=== PATIENT | male | born 1950 | race African-American/Black ===

== ENCOUNTER 2019-12-01 14:38 | Emergency (ER) | payer MEDICARE, OTHER ==
[~2019-12-01] VITALS: Ht 175.3 cm; Wt 45.4 kg
[~2019-12-01 14:38] MED LIST: CIPROFLOXACIN500 M2 ORAL
--- NOTE | 2019-12-01 15:00 | NUR ---
ED Nurse Note: Patient brought in ambulance from street due to chest pain. Patient is homeless. Patient appears to be malnoursished, thin, dry skin. Patient awake, alert, oriented x 2, appears to be intoxicated. Pinpoint pupils in bilateral eyes. No visible trauma noted. EMS given ASA and NTG and BP dropped SBP>90. No facial grimacing or guarding noted. Patient covering himeself with blankets. Provided warm blankets.
[2019-12-01 15:12] LABS: HEMATOCRIT 37.5 % (42.0-52.0); HEMOGLOBIN 12.8 G/DL (14.2-18.0); MEAN CORPUSCULAR VOLUME 97 FL (80-99); PLATELET COUNT 716 K/UL (150-450); RED BLOOD COUNT 3.85 M/UL (4.70-6.10); RED CELL DISTRIBUTION WIDTH 20.2 % (11.6-14.8); WHITE BLOOD COUNT 13.2 K/UL (4.8-10.8)
[2019-12-01 15:21] LABS: ANION GAP 10 mmol/L (5-15); BLOOD UREA NITROGEN 68 mg/dL (7-18); CALCIUM 9.5 MG/DL (8.5-10.1); CARBON DIOXIDE 27 MMOL/L (21-32); CHLORIDE 100 MMOL/L (98-107); CREATININE 3.1 MG/DL (0.55-1.30); POTASSIUM 3.9 MMOL/L (3.5-5.1); SODIUM 137 MMOL/L (136-145)
[2019-12-01 15:26] LABS: ALANINE AMINOTRANSFERASE 20 U/L (12-78); ALBUMIN 3.3 G/DL (3.4-5.0); ALBUMIN/GLOBULIN RATIO 0.7 (1.0-2.7); ALKALINE PHOSPHATASE 108 U/L (46-116); ASPARTATE AMINO TRANSFERASE 28 U/L (15-37); BILIRUBIN,TOTAL 0.4 MG/DL (0.2-1.0); CREATINE KINASE 246 U/L (26-308)
--- NOTE | 2019-12-01 16:25 | Diagnostic Imaging Report ---
Indication: Dyspnea Comparison: None A single view chest radiograph was obtained. Findings: No definite infiltrate or pulmonary vascular congestion identified. The heart is enlarged. The aorta is mildly enlarged consistent with atherosclerotic vascular disease. The bones are osteopenic. Impression: No acute disease
[2019-12-01 16:30] VITALS: BP 100/86
--- NOTE | 2019-12-01 16:30 | NUR ---
ED Nurse Note: ERMD notified of rectal temp 90.3F. Linn Hugger not available at this time. hospital medical biller notified. Provided warm blankets.
--- NOTE | 2019-12-01 17:21 | Emergency Room Report ---
History of Present Illness General Chief Complaint: Chest Pain Source: Patient Present Illness HPI This patient is brought in by EMS from the street. Patient states he has been fatigued and had earlier complained of chest pain to paramedics. He primarily complained of fatigue to me. He denied pain during my evaluation. He is homeless. He seemed sleepy but was arousable to answer simple questions. Allergies: Coded Allergies: No Known Allergies (Unverified , 02/07/15) UNABLE TO ASSESS (Unverified , 11/06/14) Patient History Past Medical History: see triage record, HTN Social History: Reports: alcohol use, drug use Reviewed Nursing Documentation: PMH: Agreed; PSxH: Agreed Nursing Documentation-PMH Past Medical History: No History, Except For Hx Hypertension: Yes Review of Systems All Other Systems: negative except mentioned in HPI Physical Exam Vital Signs Date Time Temp Pulse Resp B/P (MAP) Pulse Ox O2 Delivery O2 Flow Rate FiO2 12/01/19 14:31 60 12 92/56 (68) 93 Room Air 12/01/19 15:00 2.0 12/01/19 16:30 90.3 Sp02 EP Interpretation: reviewed, normal General Appearance: no apparent distress, GCS 15, non-toxic, cachetic, other - sleepy Head: normocephalic, atraumatic Eyes: bilateral eye PERRL, bilateral eye abnormal EOM - <1mm bilaterally ENT: hearing grossly normal, normal pharynx, no angioedema, normal voice Neck: full range of motion, supple/symm/no masses Respiratory: chest non-tender, lungs clear, normal breath sounds, no respiratory distress, no retraction, no accessory muscle use, speaking full sentences Cardiovascular #1: regular rate, rhythm, no edema Gastrointestinal: normal bowel sounds, non tender, soft, non-distended, no guarding, no rebound, other - old surgical scar Rectal: deferred Genitourinary: normal inspection, no CVA tenderness Musculoskeletal: normal inspection, back normal, normal range of motion Neurologic: alert, motor strength/tone normal, oriented x3, sensory intact, responsive, speech normal Psychiatric: judgement/insight normal, memory normal, mood/affect normal, no suicidal/homicidal ideation Medical Decision Making Diagnostic Impression: Primary Impression: Chest pain Additional Impressions: Renal failure Leukocytosis, unspecified Malnourished Dehydration ER Course This patient is found to have renal failure. He also has a very high BUN and is cachectic. I suspect he has a very poor diet as he is very malnourished. He could also have an underlying malignancy. He was given aggressive IV fluid resuscitation and admitted for renal failure, dehydration and malnourishment. The patient's insurance company requested transfer to [facility]. Patient was transferred per their request. Laboratory Tests Test 12/01/19 14:50 12/01/19 16:36 12/01/19 19:29 White Blood Count 13.2 K/UL (4.8-10.8) H Red Blood Count 3.85 M/UL (4.70-6.10) L Hemoglobin 12.8 G/DL (14.2-18.0) L Hematocrit 37.5 % (42.0-52.0) L Mean Corpuscular Volume 97 FL (80-99) Mean Corpuscular Hemoglobin 33.1 PG (27.0-31.0) H Mean Corpuscular Hemoglobin Concent 34.1 G/DL (32.0-36.0) Red Cell Distribution Width 20.2 % (11.6-14.8) H Platelet Count 716 K/UL (150-450) H Mean Platelet Volume 6.1 FL (6.5-10.1) L Neutrophils (%) (Auto) % (45.0-75.0) Lymphocytes (%) (Auto) % (20.0-45.0) Monocytes (%) (Auto) % (1.0-10.0) Eosinophils (%) (Auto) % (0.0-3.0) Basophils (%) (Auto) % (0.0-2.0) Differential Total Cells Counted 100 Neutrophils % (Manual) 91 % (45-75) H Lymphocytes % (Manual) 4 % (20-45) L Monocytes % (Manual) 2 % (1-10) Eosinophils % (Manual) 0 % (0-3) Basophils % (Manual) 0 % (0-2) Band Neutrophils 3 % (0-8) Platelet Estimate Increased H Platelet Morphology Normal Anisocytosis 2+ Prothrombin Time 10.5 SEC (9.30-11.50) Prothrombin Time INR 1.0 (0.9-1.1) Activated Partial Thromboplast Time 24 SEC (23-33) Sodium Level 137 MMOL/L (136-145) Potassium Level 3.9 MMOL/L (3.5-5.1) Chloride Level 100 MMOL/L (98-107) Carbon Dioxide Level 27 MMOL/L (21-32) Anion Gap 10 mmol/L (5-15) Blood Urea Nitrogen 68 mg/dL (7-18) H Creatinine 3.1 MG/DL (0.55-1.30) H Estimate Glomerular Filtration Rate 24.5 mL/min (>60) Glucose Level 106 MG/DL (74-106) Calcium Level 9.5 MG/DL (8.5-10.1) Total Bilirubin 0.4 MG/DL (0.2-1.0) Aspartate Amino Transferase (AST) 28 U/L (15-37) Alanine Aminotransferase (ALT) 20 U/L (12-78) Alkaline Phosphatase 108 U/L (46-116) Total Creatine Kinase 246 U/L (26-308) Troponin I 0.001 ng/mL (0.000-0.056) Total Protein 7.9 G/DL (6.4-8.2) Albumin 3.3 G/DL (3.4-5.0) L Globulin 4.6 g/dL Albumin/Globulin Ratio 0.7 (1.0-2.7) L Salicylates Level 2.2 ug/mL (2.8-20) L Acetaminophen Level < 2 MCG/ML (10-30) L Serum Alcohol < 3 mg/dL Urine Color Yellow Urine Appearance Cloudy Urine pH 5 (4.5-8.0) Urine Specific [place] 1.025 (1.005-1.035) Urine Protein 3+ (NEGATIVE) H Urine Glucose (UA) Negative (NEGATIVE) Urine Ketones 1+ (NEGATIVE) H Urine Blood 1+ (NEGATIVE) H Urine Nitrite Negative (NEGATIVE) Urine Bilirubin 1+ (NEGATIVE) H Urine Ictotest Negative (NEGATIVE) Urine Urobilinogen 4 MG/DL (0.0-1.0) H Urine Leukocyte Esterase 1+ (NEGATIVE) H Urine RBC 0-2 /HPF (0 - 0) H Urine WBC 0-2 /HPF (0 - 0) Urine Squamous Epithelial Cells None /LPF (NONE/OCC) Urine Amorphous Sediment Many /LPF (NONE) H Urine Bacteria Few /HPF (NONE) Urine Opiates Screen Negative (NEGATIVE) Urine Barbiturates Screen Negative (NEGATIVE) Phencyclidine (PCP) Screen Negative (NEGATIVE) Urine Amphetamines Screen Negative (NEGATIVE) Urine Benzodiazepines Screen Negative (NEGATIVE) Urine Cocaine Screen Negative (NEGATIVE) Urine Marijuana (THC) Screen Negative (NEGATIVE) Thyroid Stimulating Hormone (TSH) 1.145 uiU/mL (0.358-3.740) Free Thyroxine 1.21 NG/DL (0.76-1.46) EKG Diagnostic Results Rate: bradycardiac Rhythm: other - S.bradycardia ST Segments: no acute changes Rhythm Strip Diag. Results EP Interpretation: yes Rate: 60's Rhythm: no PVC's, no ectopy, other - S.jody Chest X-Ray Diagnostic Results Chest X-Ray Diagnostic Results : Chest X-Ray Ordered: Yes # of Views/Limited/Complete: 1 View Indication: Chest Pain EP Interpretation: Yes Interpretation: no consolidation, no effusion, no pneumothorax, no acute cardiopulmonary disease Impression: No acute disease Electronically Signed by: Nereyda Dickey DO Last Vital Signs Date Time Temp Pulse Resp B/P (MAP) Pulse Ox O2 Delivery O2 Flow Rate FiO2 12/01/19 16:30 90.3 54 16 100/86 96 Room Air 12/01/19 15:00 2.0 Disposition: XFER SHT-TRM HOSP Condition: Stable Referrals: NON PHYSICIAN (PCP) Nereyda Dickey DO Dec 01, 2019 17:21
[2019-12-01 17:34] LABS: APPEARANCE,URINE CLOUDY; BILIRUBIN, URINE 1+ (NEGATIVE); GLUCOSE, URINE (UA) NEGATIVE (NEGATIVE); KETONES,URINE 1+ (NEGATIVE); LEUKOCYTE ESTERASE ,URINE 1+ (NEGATIVE); NITRITE,URINE NEGATIVE (NEGATIVE); PH,URINE 5 (4.5-8.0); PROTEIN,URINE 3+ (NEGATIVE); UROBILINOGEN,URINE 4 MG/DL (0.0-1.0)
[2019-12-01 17:37] LABS: COLOR,URINE YELLOW
--- NOTE | 2019-12-01 18:00 | NUR ---
ED Nurse Note: Linn Madrid became available at this time. Applied it as ordered.
--- NOTE | 2019-12-01 19:10 | NUR ---
ED Nurse Note: Report given to ARELI Jansen. Patient resting in bed, on left side. IV on left AC, inserted by LAFD removed due to swelling. No changes in mental status. Patient awake, alert, oriented x 2. Patient remained on tony hugger. Bed in lowest position.
[2019-12-01 19:13] VITALS: BP 115/80
--- NOTE | 2019-12-01 19:23 | NUR ---
ED Nurse Note: Attempted to give report to ARELI Brown at [facility], RN not available at this time.
[2019-12-01 20:09] VITALS: BP 98/72
[2019-12-01 22:06] VITALS: BP 98/60
[2019-12-01 22:30] VITALS: BP 98/60
--- NOTE | 2019-12-01 22:30 | NUR ---
ED Nurse Note: Patient was transfered to [facility] due to CP and renal failure. Patient was transfered via private transportation [facility] [id number], ALS. Patient AAO x2, VSS at this time, pt has IV access on his R AC 20ga. Patient was transfered with all belongings.
== END 2019-12-01 22:30 | disposition short-term general hospital (02) ==
LOC: EDBD 14:38 → EMR 15:00
DX: R07.9 Chest pain, unspecified (principal); D72.829 Elevated white blood cell count, unspecified; E46 Unspecified protein-calorie malnutrition; E86.0 Dehydration; N19 Unspecified kidney failure; I10 Essential (primary) hypertension; F10.10 Alcohol abuse, uncomplicated; F19.10 Other psychoactive substance abuse, uncomplicated
CPT/HCPCS: 36415; 71045; 80053; 80307; 81003; 82550; 84439; 84443; 84484; 85007; 85025; 85610; 85730; 93005; 96360; 96361; 99284; G0480